=== PATIENT | female | born 1990 | race Caucasian/White ===

== ENCOUNTER 2018-04-21 20:19 | Emergency (ER) | payer OTHER ==
[~2018-04-21] VITALS: Ht 170.2 cm; Wt 70.3 kg
[~2018-04-21 20:19] MED LIST: AMOXICILLIN500 M2 PO; MACROBID 100 M100 MG PO; ZITHROMAX Z-PA250 M1 PO
[2018-04-21 21:21] LABS: ABSOLUTE BASOPHIL COUNT 0.1 /CUMM (0.0-0.2); ABSOLUTE EOSINOPHIL COUNT 0.1 /CUMM (0.0-0.7); ABSOLUTE GRANULOCYTE CT 8.9 /CUMM (1.4-6.5); ABSOLUTE LYMPH COUNT 2.1 /CUMM (1.2-3.4); ABSOLUTE MONOCYTE COUNT 0.8 /CUMM (0.10-0.60); BASOPHIL % 0.7 % (0.0-2.0); EOSINOPHIL % 0.4 % (0-5); GRANULOCYTE % 74.8 % (42.2-75.2); HEMATOCRIT 42.5 % (37-47); MEAN CORPUSCULAR HGB CONC 33.4 G/DL (33.0-37.0); MEAN CORPUSCULAR VOLUME 92.7 FL (81.0-99.0); MEAN PLATELET VOLUME 7.8 FL (7.4-10.4); PLATELET COUNT 308 /CUMM (130-400); RBC DISTRIBUTION WIDTH 13.7 % (11.5-14.5); RED BLOOD CELL CT 4.58 /CUMM (4.20-5.40); WHITE BLOOD CELL COUNT 11.9 /CUMM (4.8-10.8)
--- NOTE | 2018-04-21 22:20 | ED AMS/SEIZURE/WEAK/DIZZY ---
History of Present Illness General Chief Complaint: General Adult Stated Complaint: SOB, WEAK, NAUSEA Source: patient, old records Exam Limitations: no limitations Vital Signs & Intake/Output Vital Signs & Intake/Output Vital Signs Date Time Temp Pulse Resp B/P B/P Pulse O2 O2 Flow FiO2 Mean Ox Delivery Rate 04/21 2229 Room Air 04/21 2226 97.7 56 16 118/77 98 Room Air 04/21 2036 96.4 66 20 113/75 99 Room Air Allergies Coded Allergies: NO KNOWN ALLERGIES (UNKNOWN 04/21/18) Reconcile Medications Amoxicillin 500 MG CAPSULE 1 CAP PO BID UTI/Pyelonephritis Triage Note: PT HERE WITH C/O WEAKNESS SINCE THIS AM, "I FEEL DIZZY, LIGHTHEADED, NAUSEA AND BLURRED VISION, LEGS THROBBING AND SOB". Triage Nurses Notes Reviewed? yes Onset: 1 year Duration: constant, continues in ED, 1 year Timing: recent history Severity: moderate, severe Modifying Factors: Improves With: rest. Worsens With: movement. LMP (ages 10-50): now : No Patient currently breastfeeds: No HPI: 1 year prior to admission after the of her son patient complains of generalized weakness and fatigue. She reports poor sleeping secondary to her son being up frequently during the course of the night. 1 day prior to admission she complains of worsening weakness fatigue shortness of breath nausea throbbing legs generalized pain. She denies fever chills vomiting diarrhea chest pain cough shortness breath headache dysuria rash bleeding. Past History Travel History Traveled to [place] past 21 day No Medical History Any Pertinent Medical History? none Neurological: NONE EENT: NONE Cardiovascular: NONE Respiratory: NONE Gastrointestinal: NONE Hepatic: NONE Renal: NONE Musculoskeletal: NONE Psychiatric: NONE Endocrine: NONE Blood Disorders: NONE Cancer(s): NONE WAREHOUSE INVENTORY CLERK/Reproductive: chlamydia Surgical History Surgical History: non-contributory Psychosocial History What is your primary language Faroese Tobacco Use: Never used ETOH Use: denies use Illicit Drug Use: denies illicit drug use Family History Hx Contributory? No Review of Systems Review of Systems Constitutional: Reports: see HPI, malaise, weakness. EENTM: Reports: no symptoms. Respiratory: Reports: see HPI, short of breath. Cardiovascular: Reports: no symptoms. GI: Reports: see HPI, nausea. Genitourinary: Reports: no symptoms. Musculoskeletal: Reports: no symptoms. Skin: Reports: no symptoms. Neurological/Psychological: Reports: no symptoms. Hematologic/Endocrine: Reports: no symptoms. Immunologic/Allergic: Reports: no symptoms. All Other Systems: Reviewed and Negative Physical Exam Physical Exam General Appearance: well developed/nourished, alert, awake, anxious, mild distress Head: atraumatic, normal appearance Eyes: Bilateral: normal appearance, PERRL, EOMI. Ears, Nose, Throat: normal pharynx, normal ENT inspection, hearing grossly normal Neck: normal inspection, supple, full range of motion, no midline tenderness Respiratory: normal breath sounds, chest non-tender, no respiratory distress, quiet respiration, lungs clear Cardiovascular: regular rate/rhythm, normal peripheral pulses, norml femoral pulses equa Peripheral Pulses: 4+ carotid (R), 4+ carotid (L) Gastrointestinal: normal bowel sounds, soft, non-tender, no organomegaly Back: normal inspection, normal range of motion Extremities: normal range of motion, no ligament instability Neurologic/Psych: no motor/sensory deficits, awake, alert, oriented x 3, normal gait, normal mood/affect, 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 Skin: intact, normal color, warm/dry Lymphatic: no anterior cervical lina Core Measures ACS in differential dx? No CVA/TIA Diagnosis No Sepsis Present: No Sepsis Focused Exam Completed? No Progress Differential Diagnosis: anemia, dehydration, electrolyte imbalance, GI bleed, pneumonia, UTI/pyelo Plan of Care: Orders Procedure Date/time Status URINE 04/21 2110 Complete URINALYSIS 04/21 2110 Complete COMPREHENSIVE METABOLIC PANEL 04/21 2110 Complete CBC WITHOUT DIFFERENTIAL 04/21 2110 Complete Laboratory Tests 04/21/182125: Urine Color YEL, Urine Clarity CLEAR, Urine pH 6.0, Ur Specific [place] 1.020, Urine Protein NEG, Urine Ketones NEG, Urine Nitrite NEG, Urine Bilirubin NEG, Urine Urobilinogen 0.2, Ur Leukocyte Esterase NEG, Ur Microscopic SEDIMENT EXAMINED, Urine RBC 15-25 H, Urine WBC RARE, Ur Epithelial Cells FEW, Urine Bacteria RARE H, Urine Hemoglobin LARGE H, Urine Glucose NEG, Urine Test NEGATIVE 04/21/182115: Anion Gap 13, Estimated GFR > 60, BUN/Creatinine Ratio 16.3, Glucose 90, Calcium 9.5, Total Bilirubin 0.3, AST 17, ALT 33, Alkaline Phosphatase 49, Total Protein 7.4, Albumin 4.6, Globulin 2.8, Albumin/Globulin Ratio 1.6, CBC w Diff NO MAN DIFF REQ, RBC 4.58, MCV 92.7, MCH 31.0, MCHC 33.4, RDW 13.7, MPV 7.8, Gran % 74.8, Lymphocytes % 17.3 L, Monocytes % 6.8, Eosinophils % 0.4, Basophils % 0.7 , Absolute Granulocytes 8.9 H, Absolute Lymphocytes 2.1, Absolute Monocytes 0.8 H, Absolute Eosinophils 0.1, Absolute Basophils 0.1 Diagnostic Imaging: Viewed by Me: Radiology Read. Discussed w/RAD: Radiology Read. CXR Impression: Unremarkable examination Initial ED EKG: none Departure Departure Time of Disposition: 2253 Disposition: HOME OR SELF CARE Condition: Stable Clinical Impression Primary Impression: Insomnia Secondary Impressions: Nausea, Weakness Referrals: Patient Has No Primary Care Dr (PCP/Family) Departure Forms: Customer Survey General Discharge Information RELEASE- WORK Prescriptions: Current Visit Scripts Ondansetron (Zofran Odt) 1 TAB SL TID PRN nausea #10 TAB Ibuprofen 1 TAB PO Q6P PRN pain #50 TAB with food
[2018-04-21 22:26] VITALS: BP 118/77
--- NOTE | 2018-04-21 22:49 | RADIOLOGY REPORT ---
EXAMINATION: XR CHEST CLINICAL INFORMATION: Weakness and nausea. COMPARISON: None TECHNIQUE: 2 views of the chest were obtained. FINDINGS: No significant abnormality is noted involving the heart, lungs, mediastinum, bony thorax or soft tissues. IMPRESSION: Unremarkable examination.
[2018-04-21] MEDS ORDERED: ZOFRAN ODT4 M1 SL (23:01)
[2018-04-21] MEDS ORDERED: IBUPROFEN600 M1 PO (23:01)
== END 2018-04-21 23:28 ==
LOC: ERH 20:19
PROVIDERS: Emergency Medicine
DX: G47.00 Insomnia, unspecified (principal); R11.0 Nausea; R53.1 Weakness; R06.02 Shortness of breath
CPT/HCPCS: 71046; 81001; 81025; 96374; 96375; J1885; J2405